=== PATIENT | male | born 1950 | race Caucasian/White ===

== ENCOUNTER 2023-10-16 12:56 | Outpatient (RCR) | payer MEDICARE, OTHER, SELFPAY | END 2023-10-16 23:59 | disposition home or self-care (01) | LOC: RST 12:56 | PROVIDERS: ATTENDING PHYSICIAN Physical Medicine & Rehabilitation | DX: I69.351 Hemiplegia and hemiparesis following cerebral infarction affecting right dominant side (principal); I69.320 Aphasia following cerebral infarction; I69.390 Apraxia following cerebral infarction; I69.322 Dysarthria following cerebral infarction; I69.398 Other sequelae of cerebral infarction | CPT/HCPCS: 92507; 97014; 97032; 97110; 97112; 97116; 97140; 97530; 97535; 97760 ==

== ENCOUNTER → 2023-10-21 18:00 | Outpatient (REF) | payer MEDICARE, OTHER, SELFPAY ==
--- NOTE | 2023-10-22 11:47 | PN.DIAED04 ---
Education Record
- Education Record
Class Attended: Class 4
DSME Class Series Code: [id number]
Instructor: Registered Nurse (Kaela Villa, RN, BSN, CDE)
Class Length (mins): 120
Post-Class 4 Test Score (%): 100
== END ==
LOC: DES 18:00
PROVIDERS: ATTENDING PHYSICIAN Family Medicine
DX: E11.65 Type 2 diabetes mellitus with hyperglycemia (principal)
CPT/HCPCS: 99078

== ENCOUNTER → 2023-10-23 10:48 | Outpatient (REF) | payer MEDICARE, OTHER, SELFPAY ==
[2023-10-23 19:33] LABS: Urine Albumin Trace (Neg - Trace); Urine Bilirubin Negative (Negative); Urine Character Slightly Cloudy (Clear); Urine Color Yellow; Urine Glucose 3+ (Negative); Urine Ketone Negative (Negative); Urine Leukocyte 1+ (Negative); Urine Nitrite Negative (Negative); Urine Occult Blood Negative (Negative); Urine Urobilinogen Negative (Neg - 1+); Urine pH 6.5 (5.0-9.0)
[2023-10-23 19:44] LABS: Urine Bacteria Many (Negative); Urine Red Blood Cell 0-2 /HPF (0-2)
== END ==
LOC: CLAB 10:48
PROVIDERS: ATTENDING PHYSICIAN Urology
DX: N40.1 Benign prostatic hyperplasia with lower urinary tract symptoms (principal)
CPT/HCPCS: 81003; 81015; 87086; 87088; 87186

== ENCOUNTER → 2023-10-28 18:00 | Outpatient (REF) | payer MEDICARE, OTHER, SELFPAY ==
--- NOTE | 2023-10-29 15:28 | PN.DIAED16 ---
This is to notify you that your patient with diabetes, DYANA ROSE ( 1950), has attended the entire series of Diabetes Self-Management Education Classes.
Class 1 (120 minutes): Diabetes Overview - monitoring, stress/psychosocial adjustment, support, goal setting
Class 2 (120 minutes): Meal Planning - serving sizes, menu plans
Class 3 (120 minutes): Introduction to Carbohydrate Counting, Analyzing Food Labels
Class 4 (120 minutes): Medication, Exercise and Activity
Class 5 (120 minutes): Sick Day Management, Strategies to Reduce Complications, Problem Solving, Resources
The following behavioral goals were identified:
Exercise 30 mins-5x/week
Make better food choices
Follow meal plan
Reduce portion sizes
Follow monitoring times
A follow-up call will be made within three to six months to evaluate attainment of these goals and to check post-program Hemoglobin A1c and overall progress. All class participants are encouraged to contact me if I can be any further assistance in
learning how to manage their diabetes.
Sincerely,
--- NOTE | 2023-11-04 11:47 | PN.DIAED04 ---
Education Record
- Education Record
Class Attended: Class 5
DSME Class Series Code: [id number]
Instructor: Registered Nurse (Kaela Villa, RN, BSN, [facility])
Class Curriculum:
Outpatient Diabetes Education Program:
Class 5 (120 minutes)
Prevent, detect, and treat acute complications
Prevent, detect, and treat chronic complications through risk reduction
Develop personal strategies to address psychosocial issues and concerns
Development of diabetes self-management support plan
Letter to physician with DSMS plan attached sent
Class Length (mins): 120
Post-Program Knowledge: Demonstrates competency
Post-Test Score (%): 98
Post-Program Assessment
- Post-Program Assessment
Actual Weight: 174 lb 6 oz
Blood pressure: 141/74
Post-Program Depression Survey Score: 4
Reviewing Previous Goals?: Yes
Pre-Program Depression Survey Score: 0
- Goals 1 Evaluation
Goals To Be Evaluated: Exercise 30 mins-5x/week
- Goals 2 Evaluation
Goals To Be Evaluated: Make better food choices. Follow meal plan. Reduce portion sizes
- Goals 3 Evaluation
Goals To Be Evaluated: Follow monitoring times
== END ==
LOC: DES 18:00
PROVIDERS: ATTENDING PHYSICIAN Family Medicine
DX: E11.65 Type 2 diabetes mellitus with hyperglycemia (principal)
CPT/HCPCS: 99078

== ENCOUNTER → 2023-11-01 08:03 | Outpatient (REF) | payer MEDICARE, OTHER, SELFPAY ==
[2023-11-01 09:09] LABS: % Basophils 0.4 % (0-2); % Immature Granulocytes 0.2 % (0-0.5); % Lymphocytes 32.6 % (20.5-51.1); % Monocytes 10.3 % (1.7-9.3); % Neutrophils 53.5 % (42.2-75.2); Absolute Eosinophils 0.2 10^3/uL (0-0.7); Absolute Lymphocytes 1.7 10^3/uL (1.2-3.4); Absolute Monocytes 0.5 10^3/uL (0.1-0.6); Absolute Neutrophils 2.8 10^3/uL (1.4-6.5); Hematocrit 40.6 % (39.0-52.0); Hemoglobin 13.6 g/dL (13.0-18.0); Mean Corp Hgb Conc. 33.5 g/dL (33.0-37.0); Mean Corpuscular Hgb 28.8 pg (27.0-31.0); Mean Platelet Volume 10.9 fL (7.4-10.4); Nucleated Red Blood Cells % 0 % (-); Platelet Count 278 10^3/uL (130-400); Red Blood Cell Count 4.72 10^6/uL (4.70-6.10); Red Cell Dist. Width 14.7 % (11.5-14.5); White Blood Cell Count 5.3 10^3/uL (4.8-10.8)
[2023-11-01 09:14] LABS: ALT (SGPT) 34 U/L (0-50); AST (SGOT) 32 U/L (17-59); Albumin 4.2 g/dl (3.5-5.0); Alkaline Phosphatase 98 U/L (38-126); Blood Urea Nitrogen 22 mg/dl (9-20); Calcium 9.5 mg/dl (8.4-10.2); Carbon Dioxide 27 mmol/L (22-30); Chloride 105 mmol/L (98-107); Glucose 110 mg/dl (70-99); HDL Cholesterol 30 mg/dl; LDL Cholesterol, Calculated 35 mg/dl; Potassium 3.7 mmol/L (3.5-5.1); Sodium 137 mmol/L (135-145); Total Bilirubin 0.6 mg/dl (0.2-1.3); Total Cholesterol 79 mg/dl (50-199); Total Protein 6.6 g/dl (6.3-8.2); Triglyceride 74 mg/dl (10-149); Very Low Density Lipoprotein 14 mg/dl (0-30); eGFR > 60.00
[2023-11-01 09:42] LABS: PSA, Total - Diagnostic 0.69 ng/ml (0.0-4.0)
[2023-11-01 12:40] LABS: Glycohemoglobin (HgbA1c) 6.2 % (4.0-5.6)
== END ==
LOC: REG 08:03
PROVIDERS: ATTENDING PHYSICIAN Urology; FAMILY PHYSICIAN Family Medicine
DX: E11.65 Type 2 diabetes mellitus with hyperglycemia (principal); E78.00 Pure hypercholesterolemia, unspecified; N40.1 Benign prostatic hyperplasia with lower urinary tract symptoms
CPT/HCPCS: 36415; 80053; 80061; 83036; 84153; 85025; 87071; 87086; 87186

== ENCOUNTER 2023-11-14 09:48 | Outpatient (RCR) | payer MEDICARE, OTHER, SELFPAY | END 2023-11-14 23:59 | disposition home or self-care (01) | LOC: RST 09:48 | PROVIDERS: ATTENDING PHYSICIAN Physical Medicine & Rehabilitation | DX: I69.320 Aphasia following cerebral infarction (principal); I69.390 Apraxia following cerebral infarction; I69.322 Dysarthria following cerebral infarction; I69.398 Other sequelae of cerebral infarction; I69.351 Hemiplegia and hemiparesis following cerebral infarction affecting right dominant side; Z73.6 Limitation of activities due to disability | CPT/HCPCS: 92507; 97014; 97110; 97112; 97116; 97140; 97530; 97535 ==

== ENCOUNTER 2023-12-10 10:59 | Outpatient (RCR) | payer MEDICARE, OTHER, SELFPAY | END 2023-12-10 23:59 | disposition home or self-care (01) | LOC: RST 10:59 | PROVIDERS: ATTENDING PHYSICIAN Physical Medicine & Rehabilitation | DX: I69.351 Hemiplegia and hemiparesis following cerebral infarction affecting right dominant side (principal); I69.398 Other sequelae of cerebral infarction; Z73.6 Limitation of activities due to disability; I69.320 Aphasia following cerebral infarction; I69.390 Apraxia following cerebral infarction; I69.322 Dysarthria following cerebral infarction | CPT/HCPCS: 92507; 97014; 97110; 97112; 97116; 97140; 97530; 97535 ==

== ENCOUNTER 2024-01-13 11:04 | Outpatient (RCR) | payer MEDICARE, OTHER, SELFPAY | END 2024-01-13 23:59 | disposition home or self-care (01) | LOC: RST 11:04 | PROVIDERS: ATTENDING PHYSICIAN Physical Medicine & Rehabilitation | DX: I69.351 Hemiplegia and hemiparesis following cerebral infarction affecting right dominant side (principal); I69.398 Other sequelae of cerebral infarction; Z73.6 Limitation of activities due to disability; I69.320 Aphasia following cerebral infarction; I69.390 Apraxia following cerebral infarction; I69.322 Dysarthria following cerebral infarction | CPT/HCPCS: 92507; 97014; 97110; 97112; 97116; 97140; 97530; 97535 ==

== ENCOUNTER → 2024-01-31 08:20 | Outpatient (REF) | payer MEDICARE, OTHER, SELFPAY ==
[2024-01-31 09:17] LABS: % Basophils 0.4 % (0-2); % Eosinophils 2.8 % (0-6); % Immature Granulocytes 0.4 % (0-0.5); % Lymphocytes 29.5 % (20.5-51.1); % Monocytes 9.2 % (1.7-9.3); % Neutrophils 57.7 % (42.2-75.2); Absolute Eosinophils 0.2 10^3/uL (0-0.7); Absolute Lymphocytes 1.6 10^3/uL (1.2-3.4); Absolute Monocytes 0.5 10^3/uL (0.1-0.6); Absolute Neutrophils 3.1 10^3/uL (1.4-6.5); Hematocrit 43.3 % (39.0-52.0); Hemoglobin 14.6 g/dL (13.0-18.0); Mean Corp Hgb Conc. 33.7 g/dL (33.0-37.0); Mean Corpuscular Hgb 29.4 pg (27.0-31.0); Mean Corpuscular Volume 87.3 fL (80.0-94.0); Mean Platelet Volume 10.4 fL (7.4-10.4); Nucleated Red Blood Cells % 0 % (-); Platelet Count 249 10^3/uL (130-400); Red Blood Cell Count 4.96 10^6/uL (4.70-6.10); Red Cell Dist. Width 14.8 % (11.5-14.5); White Blood Cell Count 5.4 10^3/uL (4.8-10.8)
[2024-01-31 09:29] LABS: ALT (SGPT) 40 U/L (0-50); AST (SGOT) 33 U/L (17-59); Albumin 4.3 g/dl (3.5-5.0); Alkaline Phosphatase 111 U/L (38-126); Blood Urea Nitrogen 22 mg/dl (9-20); Calcium 9.9 mg/dl (8.4-10.2); Carbon Dioxide 26 mmol/L (22-30); Chloride 107 mmol/L (98-107); Glucose 107 mg/dl (70-99); HDL Cholesterol 33 mg/dl; LDL Cholesterol, Calculated 35 mg/dl; Potassium 4.1 mmol/L (3.5-5.1); Sodium 141 mmol/L (135-145); Total Bilirubin 0.7 mg/dl (0.2-1.3); Total Cholesterol 81 mg/dl (50-199); Total Protein 6.8 g/dl (6.3-8.2); Triglyceride 66 mg/dl (10-149); Very Low Density Lipoprotein 13 mg/dl (0-30); eGFR > 60.00
[2024-01-31 09:37] LABS: Protein/creatinine Ratio 0.4; Urine Protein 26 mg/dl; Urine Protein 26 mg/dl (0-12)
[2024-01-31 09:44] LABS: Microalbumin, Random Urine 8.1 mg/dl (0.6-1.7); Microalbumin/creatinine Ratio 110.8 mg/g
[2024-01-31 09:45] LABS: Free T4 1.11 ng/dl (0.78-2.19)
[2024-01-31 09:59] LABS: TSH 4.66 uIU/ml (0.47-4.68)
[2024-02-01 16:28] LABS: Thyroid Peroxidase Ab (TPO) 0.3 IU/mL (0.0-9.0)
[2024-02-01 16:40] LABS: Thyroglobulin 4.5 ng/mL (1.3-31.8); Thyroglobulin Antibodies <0.9 IU/mL (0.0-4.0)
== END ==
LOC: REG 08:20
PROVIDERS: ATTENDING PHYSICIAN Physician Assistant; FAMILY PHYSICIAN Family Medicine
DX: E11.65 Type 2 diabetes mellitus with hyperglycemia (principal)
CPT/HCPCS: 36415; 80053; 80061; 82043; 82570; 83036; 84156; 84432; 84439; 84443; 85025; 86376; 86800

== ENCOUNTER 2024-02-05 13:01 | Outpatient (RCR) | payer MEDICARE, OTHER, SELFPAY | END 2024-02-05 23:59 | disposition home or self-care (01) | LOC: RST 13:01 | PROVIDERS: ATTENDING PHYSICIAN Physical Medicine & Rehabilitation | DX: I69.351 Hemiplegia and hemiparesis following cerebral infarction affecting right dominant side (principal); I69.398 Other sequelae of cerebral infarction; Z73.6 Limitation of activities due to disability; I69.320 Aphasia following cerebral infarction; I69.390 Apraxia following cerebral infarction; I69.322 Dysarthria following cerebral infarction | CPT/HCPCS: 92507; 97014; 97110; 97112; 97116; 97530; 97535 ==

== ENCOUNTER 2024-03-13 13:01 | Outpatient (RCR) | payer MEDICARE, OTHER, SELFPAY | END 2024-03-13 23:59 | disposition home or self-care (01) | LOC: RST 13:01 | PROVIDERS: ATTENDING PHYSICIAN Physical Medicine & Rehabilitation | DX: I63.9 Cerebral infarction, unspecified (principal); I69.351 Hemiplegia and hemiparesis following cerebral infarction affecting right dominant side (principal); I69.398 Other sequelae of cerebral infarction; Z73.6 Limitation of activities due to disability; I69.320 Aphasia following cerebral infarction; I69.390 Apraxia following cerebral infarction; I69.322 Dysarthria following cerebral infarction | CPT/HCPCS: 97014; 97110; 97112; 97116; 97140; 97530 ==

== ENCOUNTER 2024-04-08 13:12 | Outpatient (RCR) | payer MEDICARE, OTHER, SELFPAY | END 2024-04-08 23:59 | disposition home or self-care (01) | LOC: RST 13:12 | PROVIDERS: ATTENDING PHYSICIAN Physical Medicine & Rehabilitation | DX: I69.351 Hemiplegia and hemiparesis following cerebral infarction affecting right dominant side (principal); I69.398 Other sequelae of cerebral infarction; Z73.6 Limitation of activities due to disability | CPT/HCPCS: 97014; 97110; 97112; 97116; 97530; 97535 ==

== ENCOUNTER 2024-05-15 10:29 | Outpatient (RCR) | payer MEDICARE, OTHER, SELFPAY ==
[2024-05-06 10:11] LABS: Glucose - Point of Care 136 mg/dl (70-99)
[2024-05-06 10:58] LABS: Glucose - Point of Care 102 mg/dl (70-99)
[2024-05-07 08:40] LABS: Glucose - Point of Care 129 mg/dl (70-99)
[2024-05-07 09:20] LABS: Glucose - Point of Care 95 mg/dl (70-99)
[2024-05-07 09:31] LABS: Glucose - Point of Care 110 mg/dl (70-99)
[2024-05-12 08:35] LABS: Glucose - Point of Care 142 mg/dl (70-99)
[2024-05-12 09:31] LABS: Glucose - Point of Care 106 mg/dl (70-99)
[2024-05-14 08:31] LABS: Glucose - Point of Care 136 mg/dl (70-99)
[2024-05-14 09:23] LABS: Glucose - Point of Care 98 mg/dl (70-99)
[2024-05-14 09:39] LABS: Glucose - Point of Care 123 mg/dl (70-99)
[2024-05-15 09:17] LABS: Glucose - Point of Care 142 mg/dl (70-99)
[2024-05-15 10:10] LABS: Glucose - Point of Care 83 mg/dl (70-99)
[2024-05-15 10:26] LABS: Glucose - Point of Care 107 mg/dl (70-99)
== END 2024-05-15 23:59 | disposition home or self-care (01) ==
LOC: CRHB 10:29
PROVIDERS: ATTENDING PHYSICIAN Internal Medicine Cardiovascular Disease
DX: Z95.1 Presence of aortocoronary bypass graft (principal)
CPT/HCPCS: 82962; G0422; G0423

== ENCOUNTER 2024-06-12 09:43 | Outpatient (RCR) | payer MEDICARE, OTHER, SELFPAY ==
[2024-05-19 08:44] LABS: Glucose - Point of Care 123 mg/dl (70-99)
[2024-05-19 09:40] LABS: Glucose - Point of Care 103 mg/dl (70-99)
[2024-05-21 08:31] LABS: Glucose - Point of Care 147 mg/dl (70-99)
[2024-05-21 09:22] LABS: Glucose - Point of Care 97 mg/dl (70-99)
[2024-05-21 09:38] LABS: Glucose - Point of Care 115 mg/dl (70-99)
[2024-05-22 09:17] LABS: Glucose - Point of Care 134 mg/dl (70-99)
[2024-05-22 10:21] LABS: Glucose - Point of Care 96 mg/dl (70-99)
[2024-05-22 10:37] LABS: Glucose - Point of Care 116 mg/dl (70-99)
[2024-06-09 08:36] LABS: Glucose - Point of Care 130 mg/dl (70-99)
[2024-06-09 09:34] LABS: Glucose - Point of Care 111 mg/dl (70-99)
[2024-06-11 08:37] LABS: Glucose - Point of Care 144 mg/dl (70-99)
[2024-06-11 09:34] LABS: Glucose - Point of Care 92 mg/dl (70-99)
[2024-06-11 09:49] LABS: Glucose - Point of Care 113 mg/dl (70-99)
[2024-06-12 09:17] LABS: Glucose - Point of Care 127 mg/dl (70-99)
[2024-06-12 10:24] LABS: Glucose - Point of Care 97 mg/dl (70-99)
[2024-06-12 11:24] LABS: Glucose - Point of Care 113 mg/dl (70-99)
== END 2024-06-12 23:59 | disposition home or self-care (01) ==
LOC: CRHB 09:43
PROVIDERS: ATTENDING PHYSICIAN Internal Medicine Cardiovascular Disease
DX: Z95.1 Presence of aortocoronary bypass graft (principal)
CPT/HCPCS: 82962; G0422; G0423

== ENCOUNTER → 2024-06-25 07:01 | Outpatient (REF) | payer MEDICARE, OTHER, SELFPAY ==
[2024-06-25 08:17] LABS: % Basophils 0.4 % (0-2); % Eosinophils 3.1 % (0-6); % Immature Granulocytes 0.2 % (0-0.5); % Lymphocytes 35.2 % (20.5-51.1); % Monocytes 10.4 % (1.7-9.3); % Neutrophils 50.7 % (42.2-75.2); Absolute Eosinophils 0.2 10^3/uL (0-0.7); Absolute Lymphocytes 1.7 10^3/uL (1.2-3.4); Absolute Monocytes 0.5 10^3/uL (0.1-0.6); Absolute Neutrophils 2.5 10^3/uL (1.4-6.5); Hematocrit 43.6 % (39.0-52.0); Hemoglobin 14.5 g/dL (13.0-18.0); Mean Corp Hgb Conc. 33.3 g/dL (33.0-37.0); Mean Corpuscular Hgb 29.2 pg (27.0-31.0); Mean Corpuscular Volume 87.9 fL (80.0-94.0); Mean Platelet Volume 10.6 fL (7.4-10.4); Nucleated Red Blood Cells % 0 % (-); Platelet Count 250 10^3/uL (130-400); Red Blood Cell Count 4.96 10^6/uL (4.70-6.10); Red Cell Dist. Width 13.4 % (11.5-14.5); White Blood Cell Count 4.8 10^3/uL (4.8-10.8)
[2024-06-25 08:39] LABS: ALT (SGPT) 34 U/L (0-50); AST (SGOT) 31 U/L (17-59); Albumin 4.4 g/dl (3.5-5.0); Alkaline Phosphatase 129 U/L (38-126); Blood Urea Nitrogen 25 mg/dl (9-20); Calcium 9.7 mg/dl (8.4-10.2); Carbon Dioxide 28 mmol/L (22-30); Chloride 103 mmol/L (98-107); Glucose 111 mg/dl (70-99); Potassium 4.3 mmol/L (3.5-5.1); Sodium 144 mmol/L (135-145); Total Bilirubin 0.7 mg/dl (0.2-1.3); Total Protein 6.9 g/dl (6.3-8.2); eGFR > 60.00
[2024-06-25 10:27] LABS: Glycohemoglobin (HgbA1c) 5.7 % (4.0-5.6)
[2024-06-25 10:48] LABS: Free T4 0.98 ng/dl (0.78-2.19)
[2024-06-25 11:02] LABS: TSH 6.61 uIU/ml (0.47-4.68)
== END ==
LOC: REG 07:01
PROVIDERS: ATTENDING PHYSICIAN Physician Assistant; FAMILY PHYSICIAN Family Medicine
DX: E11.65 Type 2 diabetes mellitus with hyperglycemia (principal); Z86.39 Personal history of other endocrine, nutritional and metabolic disease
CPT/HCPCS: 36415; 80053; 83036; 84439; 84443; 85025

== ENCOUNTER 2024-07-16 09:44 | Outpatient (RCR) | payer MEDICARE, OTHER, SELFPAY ==
[2024-06-16 09:40] LABS: Glucose - Point of Care 92 mg/dl (70-99)
[2024-06-16 09:57] LABS: Glucose - Point of Care 125 mg/dl (70-99)
[2024-06-19 09:15] LABS: Glucose - Point of Care 119 mg/dl (70-99)
[2024-06-19 10:24] LABS: Glucose - Point of Care 105 mg/dl (70-99)
[2024-06-23 08:40] LABS: Glucose - Point of Care 144 mg/dl (70-99)
[2024-06-23 09:37] LABS: Glucose - Point of Care 116 mg/dl (70-99)
[2024-06-25 08:33] LABS: Glucose - Point of Care 123 mg/dl (70-99)
[2024-06-25 09:27] LABS: Glucose - Point of Care 93 mg/dl (70-99)
[2024-06-25 09:42] LABS: Glucose - Point of Care 125 mg/dl (70-99)
[2024-06-26 09:31] LABS: Glucose - Point of Care 115 mg/dl (70-99)
[2024-06-26 10:38] LABS: Glucose - Point of Care 98 mg/dl (70-99)
[2024-06-26 10:50] LABS: Glucose - Point of Care 105 mg/dl (70-99)
[2024-06-30 08:35] LABS: Glucose - Point of Care 131 mg/dl (70-99)
[2024-06-30 09:33] LABS: Glucose - Point of Care 94 mg/dl (70-99)
[2024-06-30 09:59] LABS: Glucose - Point of Care 110 mg/dl (70-99)
[2024-07-02 08:41] LABS: Glucose - Point of Care 97 mg/dl (70-99)
[2024-07-02 09:39] LABS: Glucose - Point of Care 89 mg/dl (70-99)
[2024-07-02 09:59] LABS: Glucose - Point of Care 120 mg/dl (70-99)
[2024-07-03 09:29] LABS: Glucose - Point of Care 123 mg/dl (70-99)
[2024-07-03 10:28] LABS: Glucose - Point of Care 97 mg/dl (70-99)
[2024-07-03 10:42] LABS: Glucose - Point of Care 125 mg/dl (70-99)
[2024-07-07 08:37] LABS: Glucose - Point of Care 155 mg/dl (70-99)
[2024-07-07 09:31] LABS: Glucose - Point of Care 103 mg/dl (70-99)
[2024-07-09 08:35] LABS: Glucose - Point of Care 136 mg/dl (70-99)
[2024-07-09 09:34] LABS: Glucose - Point of Care 101 mg/dl (70-99)
[2024-07-10 09:20] LABS: Glucose - Point of Care 145 mg/dl (70-99)
[2024-07-10 10:30] LABS: Glucose - Point of Care 100 mg/dl (70-99)
[2024-07-14 08:36] LABS: Glucose - Point of Care 124 mg/dl (70-99)
[2024-07-14 09:36] LABS: Glucose - Point of Care 96 mg/dl (70-99)
[2024-07-16 08:36] LABS: Glucose - Point of Care 112 mg/dl (70-99)
[2024-07-16 09:40] LABS: Glucose - Point of Care 100 mg/dl (70-99)
== END 2024-07-16 23:59 | disposition home or self-care (01) ==
LOC: CRHB 09:44
PROVIDERS: ATTENDING PHYSICIAN Internal Medicine Cardiovascular Disease
DX: I25.10 Atherosclerotic heart disease of native coronary artery without angina pectoris (principal); Z95.1 Presence of aortocoronary bypass graft
CPT/HCPCS: 82962; G0422; G0423

== ENCOUNTER → 2024-07-20 08:43 | Outpatient (REF) | payer MEDICARE, OTHER, SELFPAY ==
[2024-07-20 10:50] LABS: Blood Urea Nitrogen 25 mg/dl (9-20); Calcium 9.8 mg/dl (8.4-10.2); Carbon Dioxide 25 mmol/L (22-30); Chloride 104 mmol/L (98-107); Glucose 114 mg/dl (70-99); Potassium 4.4 mmol/L (3.5-5.1); Sodium 141 mmol/L (135-145); eGFR > 60.00
== END ==
LOC: REG 08:43
PROVIDERS: ATTENDING PHYSICIAN Internal Medicine Cardiovascular Disease; FAMILY PHYSICIAN Family Medicine
DX: I25.10 Atherosclerotic heart disease of native coronary artery without angina pectoris (principal)
CPT/HCPCS: 36415; 80048

== ENCOUNTER 2024-08-04 09:49 | Outpatient (RCR) | payer MEDICARE, OTHER, SELFPAY ==
[2024-07-17 09:23] LABS: Glucose - Point of Care 128 mg/dl (70-99)
[2024-07-17 10:28] LABS: Glucose - Point of Care 106 mg/dl (70-99)
[2024-07-21 08:41] LABS: Glucose - Point of Care 137 mg/dl (70-99)
[2024-07-21 09:37] LABS: Glucose - Point of Care 96 mg/dl (70-99)
== END 2024-08-04 23:59 | disposition home or self-care (01) ==
LOC: CRHB 09:49
PROVIDERS: ATTENDING PHYSICIAN Internal Medicine Cardiovascular Disease
DX: I25.10 Atherosclerotic heart disease of native coronary artery without angina pectoris (principal); Z95.1 Presence of aortocoronary bypass graft
CPT/HCPCS: 82962; G0422; G0423

== ENCOUNTER → 2024-08-06 14:21 | Outpatient (REF) | payer MEDICARE, OTHER, SELFPAY | LOC: RAD 14:21 | PROVIDERS: ATTENDING PHYSICIAN Nurse Practitioner Adult Health; FAMILY PHYSICIAN Family Medicine | DX: I63.9 Cerebral infarction, unspecified (principal); I65.23 Occlusion and stenosis of bilateral carotid arteries | CPT/HCPCS: 93880 ==

== ENCOUNTER → 2024-10-12 08:30 | Outpatient (REF) | payer MEDICARE, OTHER, SELFPAY | LOC: RAD 08:30 | PROVIDERS: ATTENDING PHYSICIAN Surgery Vascular Surgery; FAMILY PHYSICIAN Internal Medicine Cardiovascular Disease | DX: Z13.6 Encounter for screening for cardiovascular disorders (principal) | CPT/HCPCS: 76770 ==

== ENCOUNTER 2024-10-14 08:58 | Outpatient (RCR) | payer MEDICARE, OTHER, SELFPAY | END 2024-10-14 23:59 | disposition home or self-care (01) | LOC: ROT 08:58 | PROVIDERS: ATTENDING PHYSICIAN Nurse Practitioner Adult Health; FAMILY PHYSICIAN Family Medicine | DX: I69.398 Other sequelae of cerebral infarction (principal); I69.351 Hemiplegia and hemiparesis following cerebral infarction affecting right dominant side; Z73.6 Limitation of activities due to disability; R26.89 Other abnormalities of gait and mobility | CPT/HCPCS: 97014; 97110; 97112; 97163; 97167; 97530; 97535; 97537 ==

== ENCOUNTER → 2024-10-23 08:59 | Outpatient (REF) | payer MEDICARE, OTHER, SELFPAY ==
[2024-10-23 09:41] LABS: % Basophils 0.5 % (0-2); % Eosinophils 3.6 % (0-6); % Immature Granulocytes 0.2 % (0-0.5); % Lymphocytes 29.9 % (20.5-51.1); % Monocytes 8.9 % (1.7-9.3); % Neutrophils 56.9 % (42.2-75.2); Absolute Eosinophils 0.2 10^3/uL (0-0.7); Absolute Lymphocytes 1.8 10^3/uL (1.2-3.4); Absolute Monocytes 0.5 10^3/uL (0.1-0.6); Absolute Neutrophils 3.3 10^3/uL (1.4-6.5); Hematocrit 44.1 % (39.0-52.0); Hemoglobin 14.8 g/dL (13.0-18.0); Mean Corp Hgb Conc. 33.6 g/dL (33.0-37.0); Mean Corpuscular Hgb 30.1 pg (27.0-31.0); Mean Corpuscular Volume 89.8 fL (80.0-94.0); Mean Platelet Volume 10.8 fL (7.4-10.4); Nucleated Red Blood Cells % 0 % (-); Platelet Count 196 10^3/uL (130-400); Red Blood Cell Count 4.91 10^6/uL (4.70-6.10); Red Cell Dist. Width 13.4 % (11.5-14.5); White Blood Cell Count 5.9 10^3/uL (4.8-10.8)
[2024-10-23 10:11] LABS: ALT (SGPT) 36 U/L (0-50); AST (SGOT) 33 U/L (17-59); Albumin 4.7 g/dl (3.5-5.0); Alkaline Phosphatase 89 U/L (38-126); Blood Urea Nitrogen 21 mg/dl (9-20); Calcium 9.7 mg/dl (8.4-10.2); Carbon Dioxide 28 mmol/L (22-30); Chloride 104 mmol/L (98-107); Glucose 123 mg/dl (70-99); Sodium 141 mmol/L (135-145); Total Bilirubin 1.1 mg/dl (0.2-1.3); Total Protein 6.8 g/dl (6.3-8.2); eGFR > 60.00
[2024-10-23 10:24] LABS: Free T4 1.05 ng/dl (0.78-2.19)
[2024-10-23 10:38] LABS: TSH 5.93 uIU/ml (0.47-4.68)
== END ==
LOC: REG 08:59
PROVIDERS: ATTENDING PHYSICIAN Physician Assistant; FAMILY PHYSICIAN Family Medicine
DX: E11.65 Type 2 diabetes mellitus with hyperglycemia (principal); Z86.39 Personal history of other endocrine, nutritional and metabolic disease
CPT/HCPCS: 36415; 80053; 83036; 84439; 84443; 85025

== ENCOUNTER 2024-11-11 09:01 | Outpatient (RCR) | payer MEDICARE, OTHER, SELFPAY | END 2024-11-11 23:59 | disposition home or self-care (01) | LOC: ROT 09:01 | PROVIDERS: ATTENDING PHYSICIAN Nurse Practitioner Adult Health; FAMILY PHYSICIAN Family Medicine | DX: I69.398 Other sequelae of cerebral infarction (principal); I69.351 Hemiplegia and hemiparesis following cerebral infarction affecting right dominant side; Z73.6 Limitation of activities due to disability; R26.89 Other abnormalities of gait and mobility | CPT/HCPCS: 97110; 97112; 97116; 97140; 97530; 97535 ==

== ENCOUNTER 2024-12-09 08:55 | Outpatient (RCR) | payer MEDICARE, OTHER, SELFPAY | END 2024-12-09 23:59 | disposition home or self-care (01) | LOC: ROT 08:55 | PROVIDERS: ATTENDING PHYSICIAN Nurse Practitioner Adult Health; FAMILY PHYSICIAN Family Medicine | DX: I69.398 Other sequelae of cerebral infarction (principal); I69.351 Hemiplegia and hemiparesis following cerebral infarction affecting right dominant side; Z73.6 Limitation of activities due to disability; R26.89 Other abnormalities of gait and mobility | CPT/HCPCS: 97110; 97112; 97116; 97140; 97530; 97535; 97537 ==

== ENCOUNTER 2024-12-23 09:55 | Outpatient (RCR) | payer MEDICARE, OTHER, SELFPAY | END 2024-12-23 23:59 | disposition home or self-care (01) | LOC: ROT 09:55 | PROVIDERS: ATTENDING PHYSICIAN Nurse Practitioner Adult Health; FAMILY PHYSICIAN Family Medicine | DX: I69.398 Other sequelae of cerebral infarction (principal); I69.351 Hemiplegia and hemiparesis following cerebral infarction affecting right dominant side; Z73.6 Limitation of activities due to disability; R26.89 Other abnormalities of gait and mobility | CPT/HCPCS: 97110; 97116; 97530 ==

== ENCOUNTER 2025-02-12 10:20 | Outpatient (RCR) | payer MEDICARE, OTHER, SELFPAY | END 2025-02-12 11:43 | disposition home or self-care (01) | LOC: ROT 10:20 | PROVIDERS: ATTENDING PHYSICIAN Nurse Practitioner Adult Health; FAMILY PHYSICIAN Family Medicine | DX: I69.398 Other sequelae of cerebral infarction (principal); I69.351 Hemiplegia and hemiparesis following cerebral infarction affecting right dominant side; Z73.6 Limitation of activities due to disability; R26.89 Other abnormalities of gait and mobility | CPT/HCPCS: 97110; 97112; 97116; 97140; 97530 ==

== ENCOUNTER → 2025-06-10 12:58 | Outpatient (REF) | payer MEDICARE, OTHER, SELFPAY | LOC: RAD 12:58 | PROVIDERS: ATTENDING PHYSICIAN Surgery Vascular Surgery; FAMILY PHYSICIAN Family Medicine | DX: I65.21 Occlusion and stenosis of right carotid artery (principal) | CPT/HCPCS: 93880 ==

== ENCOUNTER → 2025-06-11 09:01 | Outpatient (REF) | payer MEDICARE, OTHER, SELFPAY ==
[2025-06-11 10:22] LABS: Hematocrit 43.8 % (39.0-52.0); Hemoglobin 14.6 g/dL (13.0-18.0); Mean Corp Hgb Conc. 33.3 g/dL (33.0-37.0); Mean Corpuscular Volume 90.9 fL (80.0-94.0); Nucleated Red Blood Cells % 0 % (-); Platelet Count 205 10^3/uL (130-400); Red Cell Dist. Width 13.1 % (11.5-14.5)
[2025-06-11 10:41] LABS: Glycohemoglobin (HgbA1c) 6.2 % (4.0-5.6)
[2025-06-11 10:44] LABS: ALT (SGPT) 33 U/L (0-50); AST (SGOT) 26 U/L (17-59); Albumin 4.2 g/dl (3.5-5.0); Alkaline Phosphatase 74 U/L (38-126); Blood Urea Nitrogen 22 mg/dl (9-20); Calcium 9.5 mg/dl (8.4-10.2); Carbon Dioxide 27 mmol/L (22-30); Chloride 107 mmol/L (98-107); Glucose 132 mg/dl (70-99); HDL Cholesterol 38 mg/dl; LDL Cholesterol, Calculated 42 mg/dl; Potassium 4.1 mmol/L (3.5-5.1); Sodium 141 mmol/L (135-145); Total Protein 6.5 g/dl (6.3-8.2); Very Low Density Lipoprotein 13 mg/dl (0-30); eGFR > 60.00
[2025-06-11 11:14] LABS: PSA, Total - Screen 0.48 ng/ml (0.0-4.0); TSH 5.96 uIU/ml (0.47-4.68)
== END ==
LOC: REG 09:01
PROVIDERS: ATTENDING PHYSICIAN Internal Medicine Endocrinology, Diabetes & Metabolism; FAMILY PHYSICIAN Family Medicine; REFERRING PHYSICIAN Internal Medicine Cardiovascular Disease
DX: E11.65 Type 2 diabetes mellitus with hyperglycemia (principal); Z86.39 Personal history of other endocrine, nutritional and metabolic disease; E78.00 Pure hypercholesterolemia, unspecified; Z12.5 Encounter for screening for malignant neoplasm of prostate
CPT/HCPCS: 36415; 80053; 80061; 83036; 84439; 84443; 85025; G0103